=== PATIENT | female | born 1995 | race Caucasian/White ===

== ENCOUNTER 2017-05-11 11:38 | Emergency (ER) | payer MEDICAID ==
[~2017-05-11] VITALS: Ht 152.4 cm; Wt 55.4 kg
[~2017-05-11 11:38] MED LIST: ALBU18HF IH
[2017-05-11 13:42] VITALS: BP 107/68
== END 2017-05-11 13:45 | disposition home or self-care (01) ==
LOC: ED 13:30
DX: R07.89 Other chest pain (principal)
CPT/HCPCS: 71020; 93005; 99284